=== PATIENT | female | born 1930 | race Caucasian/White ===

== ENCOUNTER 2020-04-09 16:00 | Emergency (ER) | payer MEDICARE, OTHER ==
[~2020-04-09 16:00] MED LIST: AMIODARONE HCL200 MG PO; AMLODIPINE BESYL5 MG PO; ASPIR-LOW81 MG PO; ASPIRIN EC81 MG PO; ATORVASTATIN CA10 MG PO; BUSPIRONE HCL5 MG PO; CHRONULAC20 GM/30 M PO; CITALOPRAM HBR40 MG PO; COLACE 100MG C100 MG PO; CYMBALTA 30 MG30 MG PO; DICLOFEN 3%-HYA30 GM TP; ELIQUIS5 MG PO; GERITOL COMPLE1 EACH PO; IMDUR ER TAB 3030 MG PO; KLONOPIN TAB 00.5 MG PO; LAXATIVE5 M1 PO; LEVOTHYROXINE75 MCG PO; LOPRESSOR 25 MG25 MG PO; LOPRESSOR 50 MG50 MG PO; NAMENDA 5 MG TAB5 MG PO; NAMENDA5 MG PO; NORVASC 5 MG TAB5 MG PO; PHENERGAN 25 MG25 M1 PO; PLAVIX 75 MG TA75 MG PO; PROAIR HFA8.5 GM INH; PROTONIX40 MG PO; SENNA-TIME S T1 EACH PO; STOOL SOFTENER100 M1 PO; SYNTHROID50 MCG PO; TOPROL XL 50 MG50 MG PO; TYLENOL325 MG PO; ZEBETA 5 MG TAB5 MG PO; ZOFRAN 4 MG TAB4 MG PO
[2020-04-09 16:36] LABS: HEMOGLOBIN 11.4 gm/dl (12.3-15.3); RED BLOOD COUNT 3.86 M/UL (4.00-5.10)
[2020-04-09] MEDS ORDERED: MACROBID 100 M100 MG PO (18:55)
== END 2020-04-09 19:20 | disposition home or self-care (01) ==
LOC: ER1 16:00
PROVIDERS: Preventive Medicine Occupational Medicine
DX: N39.0 Urinary tract infection, site not specified (principal); R55 Syncope and collapse; I25.10 Atherosclerotic heart disease of native coronary artery without angina pectoris; Z88.2 Allergy status to sulfonamides; I48.91 Unspecified atrial fibrillation; Z88.1 Allergy status to other antibiotic agents
CPT/HCPCS: 0240U; 70450; 71045; 72125; 80053; 81001; 82550; 82553; 83690; 83874; 83880; 84484; 85025; 86140; 87081; 87086; 87880; 93005; 99284

== ENCOUNTER → 2020-06-26 | Outpatient (CLI) | payer MEDICARE, OTHER ==
[~2020-06-26] MED LIST changes: +MACROBID 100 M100 MG PO
== END ==
LOC: EXRD 14:43
DX: I63.9 Cerebral infarction, unspecified (principal); G45.9 Transient cerebral ischemic attack, unspecified; R93.1 Abnormal findings on diagnostic imaging of heart and coronary circulation
CPT/HCPCS: 93880

== ENCOUNTER 2020-10-07 19:34 | Emergency (ER) | payer MEDICARE, OTHER | END 2020-10-07 20:02 | disposition left against medical advice (07) | LOC: ER1 19:34 | DX: Z53.21 Procedure and treatment not carried out due to patient leaving prior to being seen by health care provider (principal) ==

== ENCOUNTER 2020-10-13 17:21 | Emergency (ER) | payer MEDICARE, OTHER ==
[2020-10-13] MEDS ORDERED: HYDROCODON-ACE1 EAC4 PO (20:11)
== END 2020-10-13 20:37 | disposition home or self-care (01) ==
LOC: ER1 17:21
DX: S13.4XXA Sprain of ligaments of cervical spine, initial encounter (principal); S00.83XA Contusion of other part of head, initial encounter; S20.214A Contusion of middle front wall of thorax, initial encounter; W19.XXXA Unspecified fall, initial encounter
CPT/HCPCS: 70450; 70486; 71045; 72125; 73030; 99284

== ENCOUNTER 2020-10-18 13:00 | Emergency (ER) | payer MEDICARE, OTHER ==
[~2020-10-18 13:00] MED LIST changes: +HYDROCODON-ACE1 EAC4 PO
[2020-10-18 14:34] LABS: HEMOGLOBIN 12.9 gm/dl (12.3-15.3); RED BLOOD COUNT 4.35 M/UL (4.00-5.10); WHITE BLOOD COUNT 4.8 K/UL (4.5-11.0)
[2020-10-18] MEDS ORDERED: SALONPAS1 EACH TP (17:02)
[2020-10-18] MEDS ORDERED: HYDROCODON-ACE1 EAC4 PO (17:02)
== END 2020-10-18 16:56 | disposition home or self-care (01) ==
LOC: ER1 13:00
PROVIDERS: Physician Assistant Medical
DX: S22.21XA Fracture of manubrium, initial encounter for closed fracture (principal); W19.XXXA Unspecified fall, initial encounter
CPT/HCPCS: 71260; 80053; 84484; 85025; 93005; 99284; Q9967

== ENCOUNTER 2021-01-11 13:00 | Inpatient (IN) | payer MEDICARE, OTHER ==
[~2021-01-11] VITALS: Ht 172.7 cm; Wt 65.8 kg
[~2021-01-11 13:00] MED LIST changes: +BUSPIRONE HCL7.5 MG PO; +SALONPAS1 EACH TP
[2021-01-11 14:21] LABS: HEMOGLOBIN 11.1 gm/dl (12.3-15.3); RED BLOOD COUNT 3.78 M/UL (4.00-5.10); WHITE BLOOD COUNT 8.2 K/UL (4.5-11.0)
[2021-01-11] MEDS ORDERED: LISINOPRIL10 MG PO (18:57)
[2021-01-11] MEDS ORDERED: MULTIVITAMIN1 EACH PO (18:58)
[2021-01-11] MEDS ORDERED: SENNA-DOCUSATE1 EACH PO (18:59)
[2021-01-12 03:23] LABS: HEMOGLOBIN 9.9 gm/dl (12.3-15.3); RED BLOOD COUNT 3.41 M/UL (4.00-5.10)
[2021-01-12 03:29] LABS: WHITE BLOOD COUNT 5.8 K/UL (4.5-11.0)
--- NOTE | 2021-01-13 00:29 | NUR ---
PT ASSESSTED TO THE [facility], AND DAUGHTER STATES, "SHE IS SO RESTLESS CAN WE HAVE SOMETHING TO HELP HER SLEEP?" NOTIFIED DR MCGINNIS
[2021-01-13 03:17] LABS: HEMOGLOBIN 10.6 gm/dl (12.3-15.3); RED BLOOD COUNT 3.62 M/UL (4.00-5.10); WHITE BLOOD COUNT 6.7 K/UL (4.5-11.0)
[2021-01-13 03:38] LABS: BUN/CREATININE RATIO 17 (0-10)
[2021-01-14 03:04] LABS: HEMOGLOBIN 11.2 gm/dl (12.3-15.3); RED BLOOD COUNT 3.85 M/UL (4.00-5.10); WHITE BLOOD COUNT 6.1 K/UL (4.5-11.0)
[2021-01-14 03:16] LABS: BUN/CREATININE RATIO 16 (0-10)
[2021-01-15] MEDS ORDERED: CARDIZEM 60MG T60 MG PO (12:49)
[2021-01-15] MEDS ORDERED: LOPRESSOR 25 MG25 MG PO (12:49)
== END 2021-01-15 14:14 | disposition home or self-care (01) | DRG 308 ==
LOC: ER1 13:00 → CDU 16:44 → PROG CARE 16:44
PROVIDERS: Family Medicine; Internal Medicine; Physician Assistant; ADMIT Internal Medicine
PROC: B24BZZZ Ultrasonography of Heart with Aorta (ICD-10-PCS; principal; 2021-01-12)
DX: I48.0 Paroxysmal atrial fibrillation (principal); Z20.822 Contact with and (suspected) exposure to COVID-19; J96.01 Acute respiratory failure with hypoxia; J18.9 Pneumonia, unspecified organism; J90 Pleural effusion, not elsewhere classified; N17.9 Acute kidney failure, unspecified; N18.30 Chronic kidney disease, stage 3 unspecified; R74.01 Elevation of levels of liver transaminase levels; K76.9 Liver disease, unspecified; N28.1 Cyst of kidney, acquired; I49.5 Sick sinus syndrome; I07.1 Rheumatic tricuspid insufficiency; I27.20 Pulmonary hypertension, unspecified; I12.9 Hypertensive chronic kidney disease with stage 1 through stage 4 chronic kidney disease, or unspecified chronic kidney disease; E78.5 Hyperlipidemia, unspecified; E03.9 Hypothyroidism, unspecified; F03.90 Unspecified dementia, unspecified severity, without behavioral disturbance, psychotic disturbance, mood disturbance, and anxiety; E87.6 Hypokalemia; K59.09 Other constipation; Z79.01 Long term (current) use of anticoagulants; Z95.2 Presence of prosthetic heart valve; Z88.6 Allergy status to analgesic agent; Z88.1 Allergy status to other antibiotic agents; Z88.0 Allergy status to penicillin; Z88.2 Allergy status to sulfonamides; Z88.8 Allergy status to other drugs, medicaments and biological substances; Z83.49 Family history of other endocrine, nutritional and metabolic diseases; Z86.73 Personal history of transient ischemic attack (TIA), and cerebral infarction without residual deficits; Z95.5 Presence of coronary angioplasty implant and graft; Z80.6 Family history of leukemia
CPT/HCPCS: ECHO; 36415; 36600; 71045; 80048; 80053; 80076; 82550; 82553; 82803; 83605; 83690; 83735; 83874; 83880; 84132; 84439; 84443; 84484; 85025; 92610; 93005; 93270; 93306; 94640; 94664; 94760; 96374; 97116; 97162; 99285; J1940; J1956; J7040; U0002

== ENCOUNTER 2021-02-09 21:13 | Emergency (ER) | payer MEDICARE, OTHER ==
[~2021-02-09 21:13] MED LIST changes: +CARDIZEM 60MG T60 MG PO; +LISINOPRIL10 MG PO; +MULTIVITAMIN1 EACH PO; +SENNA-DOCUSATE1 EACH PO
[2021-02-09 22:22] LABS: HEMOGLOBIN 12.1 gm/dl (12.3-15.3); RED BLOOD COUNT 4.22 M/UL (4.00-5.10); WHITE BLOOD COUNT 4.9 K/UL (4.5-11.0)
[2021-02-09 22:46] LABS: BUN/CREATININE RATIO 11 (0-10)
== END 2021-02-10 01:20 | disposition home or self-care (01) ==
LOC: ER1 21:13
PROVIDERS: Emergency Medicine
DX: S01.01XA Laceration without foreign body of scalp, initial encounter (principal); I25.10 Atherosclerotic heart disease of native coronary artery without angina pectoris; I10 Essential (primary) hypertension; Z20.822 Contact with and (suspected) exposure to COVID-19; Z88.0 Allergy status to penicillin; Z88.1 Allergy status to other antibiotic agents; Z88.2 Allergy status to sulfonamides; Z88.8 Allergy status to other drugs, medicaments and biological substances; W19.XXXA Unspecified fall, initial encounter
CPT/HCPCS: 70450; 71045; 80048; 81001; 82550; 82553; 83874; 84484; 85025; 85610; 85730; 90471; 90715; 93005; 99284; U0002

== ENCOUNTER 2021-05-16 03:10 | Observation (INO) | payer MEDICARE, OTHER ==
[~2021-05-16] VITALS: Ht 172.7 cm; Wt 59.0 kg
[~2021-05-16 03:10] MED LIST changes: -BUSPIRONE HCL7.5 MG PO; -SENNA-DOCUSATE1 EACH PO
[2021-05-16 05:15] LABS: HEMOGLOBIN 12.4 gm/dl (12.3-15.3); RED BLOOD COUNT 4.45 M/UL (4.00-5.10); WHITE BLOOD COUNT 5.2 K/UL (4.5-11.0)
[2021-05-16 05:32] LABS: BUN/CREATININE RATIO 11 (0-10)
[2021-05-16] MEDS ORDERED: ALPRAZOLAM0.5 MG PO (09:53)
[2021-05-16] MEDS ORDERED: BUSPIRONE HCL7.5 MG PO (10:06)
[2021-05-16] MEDS ORDERED: TOPROL XL25 MG PO (10:48)
[2021-05-16] MEDS ORDERED: CARDIZEM 30MG T30 MG PO (10:54)
[2021-05-16] MEDS ORDERED: SENNA PLUS TAB1 EACH PO (10:56)
[2021-05-16] MEDS ORDERED: LIPITOR TAB 1010 MG PO (10:57)
[2021-05-16] MEDS ORDERED: SENNA-DOCUSATE1 EACH PO (18:59)
[2021-05-17 05:56] LABS: RED BLOOD COUNT 4.33 M/UL (4.00-5.10); WHITE BLOOD COUNT 5.3 K/UL (4.5-11.0)
[2021-05-17 06:55] LABS: BUN/CREATININE RATIO 12 (0-10)
[2021-05-17] MEDS ORDERED: HYDROCODON-ACE1 EAC4 PO (10:45)
[2021-05-17] MEDS ORDERED: THERAGRAN M TAB1 EA PO (10:45)
[2021-05-17] MEDS ORDERED: TYLENOL 8 HOUR650 MG PO (10:45)
--- NOTE | 2021-05-17 14:29 | NUR ---
REPORT CALLED TO DAYANARA WITH [facility].
== END 2021-05-17 14:59 | disposition home or self-care (01) ==
LOC: ER1 03:10 → MED SURG 4 08:31 → CDU 08:31 → MED SURG 4 08:34
PROVIDERS: Family Medicine; Physician Assistant Medical; ADMIT Internal Medicine Infectious Disease
DX: S72.114A Nondisplaced fracture of greater trochanter of right femur, initial encounter for closed fracture (principal); S00.81XA Abrasion of other part of head, initial encounter; S16.1XXA Strain of muscle, fascia and tendon at neck level, initial encounter; S86.811A Strain of other muscle(s) and tendon(s) at lower leg level, right leg, initial encounter; U07.1 COVID-19; G30.9 Alzheimer's disease, unspecified; F02.80 Dementia in other diseases classified elsewhere, unspecified severity, without behavioral disturbance, psychotic disturbance, mood disturbance, and anxiety; E87.6 Hypokalemia; D69.6 Thrombocytopenia, unspecified; I48.0 Paroxysmal atrial fibrillation; E03.9 Hypothyroidism, unspecified; I72.3 Aneurysm of iliac artery; K59.09 Other constipation; E78.5 Hyperlipidemia, unspecified; N17.9 Acute kidney failure, unspecified; I12.9 Hypertensive chronic kidney disease with stage 1 through stage 4 chronic kidney disease, or unspecified chronic kidney disease; N18.9 Chronic kidney disease, unspecified; Z79.01 Long term (current) use of anticoagulants; Z95.2 Presence of prosthetic heart valve; Z88.1 Allergy status to other antibiotic agents; Z88.0 Allergy status to penicillin; Z88.2 Allergy status to sulfonamides; Z88.8 Allergy status to other drugs, medicaments and biological substances; W19.XXXA Unspecified fall, initial encounter; Y92.009 Unspecified place in unspecified non-institutional (private) residence as the place of occurrence of the external cause
CPT/HCPCS: 36415; 70450; 71045; 72125; 72192; 73502; 73564; 80048; 80053; 81001; 82550; 82553; 83735; 84132; 84484; 85025; 85027; 97110-GP-CQ; 97116-GP-CQ; 97161; 97166; 97535; 99285; G0378; U0002

== ENCOUNTER 2021-05-18 15:27 | Observation (INO) | payer MEDICARE, OTHER ==
[~2021-05-18] VITALS: Ht 172.7 cm; Wt 59.0 kg
[~2021-05-18 15:27] MED LIST changes: +ALPRAZOLAM0.5 MG PO; +BUSPIRONE HCL7.5 MG PO; +CARDIZEM 30MG T30 MG PO; +LIPITOR TAB 1010 MG PO; +SENNA PLUS TAB1 EACH PO; +SENNA-DOCUSATE1 EACH PO; +THERAGRAN M TAB1 EA PO; +TOPROL XL25 MG PO; +TYLENOL 8 HOUR650 MG PO
[2021-05-18 17:45] LABS: HEMOGLOBIN 11.5 gm/dl (12.3-15.3); RED BLOOD COUNT 4.18 M/UL (4.00-5.10)
[2021-05-18 17:52] LABS: WHITE BLOOD COUNT 7.2 K/UL (4.5-11.0)
[2021-05-18 18:49] LABS: BUN/CREATININE RATIO 15 (0-10)
[2021-05-19 02:18] LABS: HEMOGLOBIN 10.7 gm/dl (12.3-15.3); RED BLOOD COUNT 3.82 M/UL (4.00-5.10); WHITE BLOOD COUNT 6.3 K/UL (4.5-11.0)
[2021-05-19 02:56] LABS: BUN/CREATININE RATIO 15 (0-10)
[2021-05-20 02:58] LABS: HEMOGLOBIN 11.2 gm/dl (12.3-15.3); RED BLOOD COUNT 3.97 M/UL (4.00-5.10)
[2021-05-20 03:59] LABS: BUN/CREATININE RATIO 16 (0-10)
[2021-05-20] MEDS ORDERED: DILTIAZEM 24HR240 M1 PO (09:29)
[2021-05-20] MEDS ORDERED: LEVOFLOXACIN500 MG PO (09:29)
[2021-05-20] MEDS ORDERED: LOPRESSOR 50 MG50 MG PO (09:29)
== END 2021-05-20 12:42 | disposition home or self-care (01) ==
LOC: ER1 15:27 → CDU 18:19 → PROG CARE 19:13 → CDU 19:13 → PROG CARE 20:06
PROVIDERS: Physician Assistant Medical; ADMIT Internal Medicine
DX: I48.20 Chronic atrial fibrillation, unspecified (principal); U07.1 COVID-19; F03.90 Unspecified dementia, unspecified severity, without behavioral disturbance, psychotic disturbance, mood disturbance, and anxiety; E03.9 Hypothyroidism, unspecified; I10 Essential (primary) hypertension; Z95.2 Presence of prosthetic heart valve; Z87.81 Personal history of (healed) traumatic fracture; Z79.01 Long term (current) use of anticoagulants; Z88.1 Allergy status to other antibiotic agents; Z88.0 Allergy status to penicillin; Z88.2 Allergy status to sulfonamides; Z88.8 Allergy status to other drugs, medicaments and biological substances
CPT/HCPCS: 71045; 80048; 80053; 81001; 82550; 82553; 83605; 83735; 84100; 84439; 84443; 84484; 85025; 85610; 87040; 87086; 93005; 96365; 96374; 99285; G0378; J1956; U0002

== ENCOUNTER → 2021-09-17 | Outpatient (CLI) | payer MEDICARE, OTHER ==
[~2021-09-17] MED LIST changes: +DILTIAZEM 24HR240 M1 PO; +LEVOFLOXACIN500 MG PO
== END ==
LOC: KOH-I 13:30
DX: R93.6 Abnormal findings on diagnostic imaging of limbs (principal); S72.111D Displaced fracture of greater trochanter of right femur, subsequent encounter for closed fracture with routine healing; M89.9 Disorder of bone, unspecified
CPT/HCPCS: 73700

== ENCOUNTER → 2021-09-24 | Outpatient (CLI) | payer MEDICARE, OTHER ==
[~2021-09-24] MED LIST changes: +CYMBALTA60 MG PO; +METOPROLOL SUCC25 MG PO; +QUETIAPINE FUMA25 MG PO
== END ==
LOC: KOH-I 10:57
DX: S72.141A Displaced intertrochanteric fracture of right femur, initial encounter for closed fracture (principal)
CPT/HCPCS: 73721

== ENCOUNTER 2021-09-28 10:16 | Inpatient (IN) | payer MEDICARE, OTHER ==
[~2021-09-28] VITALS: Ht 172.7 cm; Wt 61.2 kg
[~2021-09-28 10:16] MED LIST changes: -METOPROLOL SUCC25 MG PO; -QUETIAPINE FUMA25 MG PO
[2021-09-28 11:39] LABS: HEMOGLOBIN 11.7 gm/dl (12.3-15.3); RED BLOOD COUNT 4.49 M/UL (4.00-5.10); WHITE BLOOD COUNT 5.7 K/UL (4.5-11.0)
[2021-09-28 12:05] LABS: BUN/CREATININE RATIO 15 (0-10)
[2021-09-28] MEDS ORDERED: QUETIAPINE FUMA25 MG PO (16:41)
[2021-09-28] MEDS ORDERED: METOPROLOL SUCC25 MG PO (16:47)
[2021-09-28] MEDS ORDERED: LISINOPRIL10 MG PO (16:49)
[2021-09-29 06:52] LABS: HEMOGLOBIN 11.9 gm/dl (12.3-15.3); RED BLOOD COUNT 4.55 M/UL (4.00-5.10)
[2021-09-29 09:28] LABS: BUN/CREATININE RATIO 16 (0-10)
[2021-09-30 05:54] LABS: HEMOGLOBIN 11.7 gm/dl (12.3-15.3); RED BLOOD COUNT 4.47 M/UL (4.00-5.10); WHITE BLOOD COUNT 5.2 K/UL (4.5-11.0)
[2021-09-30 06:18] LABS: BUN/CREATININE RATIO 19 (0-10)
[2021-10-01 07:07] LABS: HEMOGLOBIN 11.8 gm/dl (12.3-15.3); RED BLOOD COUNT 4.51 M/UL (4.00-5.10)
[2021-10-01 07:21] LABS: BUN/CREATININE RATIO 16 (0-10)
[2021-10-01] MEDS ORDERED: CARDIZEM CD300 MG PO (13:57)
[2021-10-01] MEDS ORDERED: MACROBID 100 M100 MG PO (14:01)
[2021-10-02 06:32] LABS: HEMOGLOBIN 11.4 gm/dl (12.3-15.3); RED BLOOD COUNT 4.37 M/UL (4.00-5.10); WHITE BLOOD COUNT 5.2 K/UL (4.5-11.0)
[2021-10-02 06:59] LABS: BUN/CREATININE RATIO 19 (0-10)
[2021-10-02] MEDS ORDERED: MIRALAX17 GM PO (09:57)
[2021-10-02] MEDS ORDERED: SENNA PLUS 8.61 EACH PO (09:57)
[2021-10-02] MEDS ORDERED: HYDROCODON-ACE1 EAC4 PO (09:58)
[2021-10-03] MEDS ORDERED: SEROQUEL50 MG PO (14:40)
== END 2021-10-02 12:41 | disposition home health service (06) | DRG 536 ==
LOC: ER1 10:16 → CDU 14:23 → M/S 14:23
PROVIDERS: Physician Assistant; ADMIT Internal Medicine
PROC: B24BZZZ Ultrasonography of Heart with Aorta (ICD-10-PCS; principal; 2021-09-29)
DX: S72.114A Nondisplaced fracture of greater trochanter of right femur, initial encounter for closed fracture (principal); S32.049A Unspecified fracture of fourth lumbar vertebra, initial encounter for closed fracture; N39.0 Urinary tract infection, site not specified; I48.20 Chronic atrial fibrillation, unspecified; Z20.822 Contact with and (suspected) exposure to COVID-19; S72.8X1A Other fracture of right femur, initial encounter for closed fracture; Z66 Do not resuscitate; I65.29 Occlusion and stenosis of unspecified carotid artery; D69.6 Thrombocytopenia, unspecified; D64.9 Anemia, unspecified; E03.9 Hypothyroidism, unspecified; I11.0 Hypertensive heart disease with heart failure; I50.9 Heart failure, unspecified; I48.0 Paroxysmal atrial fibrillation; R29.6 Repeated falls; F03.90 Unspecified dementia, unspecified severity, without behavioral disturbance, psychotic disturbance, mood disturbance, and anxiety; I07.1 Rheumatic tricuspid insufficiency; I45.81 Long QT syndrome; R33.9 Retention of urine, unspecified; W18.30XA Fall on same level, unspecified, initial encounter; E78.5 Hyperlipidemia, unspecified; I25.10 Atherosclerotic heart disease of native coronary artery without angina pectoris; Z79.01 Long term (current) use of anticoagulants; Z82.49 Family history of ischemic heart disease and other diseases of the circulatory system; Y92.009 Unspecified place in unspecified non-institutional (private) residence as the place of occurrence of the external cause; Z86.73 Personal history of transient ischemic attack (TIA), and cerebral infarction without residual deficits; Z98.42 Cataract extraction status, left eye; Z98.41 Cataract extraction status, right eye; Z90.49 Acquired absence of other specified parts of digestive tract; Z88.1 Allergy status to other antibiotic agents; Z88.0 Allergy status to penicillin; Z88.2 Allergy status to sulfonamides; Z88.8 Allergy status to other drugs, medicaments and biological substances; Z80.1 Family history of malignant neoplasm of trachea, bronchus and lung; Z80.0 Family history of malignant neoplasm of digestive organs
CPT/HCPCS: ECHO; 36415; 71045; 72131; 72170; 73502; 73552; 80053; 81001; 82550; 82553; 83735; 84484; 85025; 85027; 86850; 86900; 86901; 92526; 92610; 93005; 93306; 96374; 97162; 97166; 97530; 97530-GP-CQ; 99285; J1650; J2060

== ENCOUNTER 2021-10-03 10:44 | Emergency (ER) | payer MEDICARE, OTHER ==
[~2021-10-03 10:44] MED LIST changes: +CARDIZEM CD300 MG PO; +METOPROLOL SUCC25 MG PO; +MIRALAX17 GM PO; +QUETIAPINE FUMA25 MG PO; +SENNA PLUS 8.61 EACH PO
[2021-10-03 12:10] LABS: HEMOGLOBIN 12.9 gm/dl (12.3-15.3)
[2021-10-03 12:11] LABS: RED BLOOD COUNT 4.88 M/UL (4.00-5.10); WHITE BLOOD COUNT 9.6 K/UL (4.5-11.0)
[2021-10-03 12:30] LABS: BUN/CREATININE RATIO 17 (0-10)
[2021-10-03] MEDS ORDERED: SEROQUEL50 MG PO (14:40)
== END 2021-10-03 15:05 | disposition home or self-care (01) ==
LOC: ER1 10:44
PROVIDERS: Physician Assistant
DX: R31.9 Hematuria, unspecified (principal); R51.9 Headache, unspecified; R53.1 Weakness; F41.9 Anxiety disorder, unspecified; I48.91 Unspecified atrial fibrillation; E03.9 Hypothyroidism, unspecified; Z79.899 Other long term (current) drug therapy; Z79.01 Long term (current) use of anticoagulants; Z86.59 Personal history of other mental and behavioral disorders
CPT/HCPCS: 70450; 71045; 74018; 80053; 81001; 82550; 82553; 84439; 84443; 84484; 85025; 87077; 87086; 87186; 93005; 99284

== ENCOUNTER 2021-10-18 12:34 | Emergency (ER) | payer MEDICARE, OTHER ==
[~2021-10-18 12:34] MED LIST changes: +SEROQUEL50 MG PO
[2021-10-18 13:02] LABS: HEMOGLOBIN 13.1 gm/dl (12.3-15.3); RED BLOOD COUNT 4.96 M/UL (4.00-5.10); WHITE BLOOD COUNT 8.4 K/UL (4.5-11.0)
[2021-10-18 13:39] LABS: BUN/CREATININE RATIO 15 (0-10)
[2021-10-18] MEDS ORDERED: ZOFRAN ODT 4 MG4 MG SL (17:33)
== END 2021-10-18 17:45 | disposition home or self-care (01) ==
LOC: ER1 12:34
PROVIDERS: Emergency Medicine
DX: E86.0 Dehydration (principal); F03.90 Unspecified dementia, unspecified severity, without behavioral disturbance, psychotic disturbance, mood disturbance, and anxiety; I48.91 Unspecified atrial fibrillation; I10 Essential (primary) hypertension; Z87.440 Personal history of urinary (tract) infections; Z88.0 Allergy status to penicillin; Z88.2 Allergy status to sulfonamides; Z20.822 Contact with and (suspected) exposure to COVID-19
CPT/HCPCS: 70450; 71045; 80053; 81001; 83605; 83735; 84484; 85025; 86140; 87040; 87086; 96365; 99285; J1956; U0002